=== PATIENT | female | born 1975 | race Caucasian/White ===

== ENCOUNTER 2018-08-16 20:13 | Inpatient (IN) | payer OTHER ==
[2018-08-16] MEDS: ACETAMINOPHEN 325 MG TAB PO (22:14)
[2018-08-16] MEDS: BACLOFEN 10 MG TAB PO (22:15)
[2018-08-16] MEDS: HYDROCODONE/APAP (10/325) TAB PO (22:15)
[2018-08-16] MEDS: FAMOTIDINE 20 MG TAB PO (22:15)
[2018-08-16] MEDS: SOD CHLORIDE 0.9% 1,000 ML IV (22:17)
[2018-08-16] MEDS: NORTRIPTYLINE 10 MG CAP PO (23:30)
[2018-08-16] MEDS: MEROPENEM 1 GM/50ML(PMX) 50 ML IVPB (23:35)
[2018-08-17 08:19] LABS: ADD MAN DIFF? NO
[2018-08-17 08:23] LABS: BASOPHILS % 0.3 % (0.0-2.0); EOSINOPHILS % 0.3 % (0.0-7.0); HEMOGLOBIN 11.3 g/dl (12.0-16.0); LYMPHOCYTES % 8.6 % (15.0-51.0); MEAN CORPUSCULAR HEMOGLOBIN 30.4 pg (29.0-33.0); MEAN CORPUSCULAR HGB CONC 33.2 g/dl (32.0-37.0); MEAN CORPUSCULAR VOLUME 91.4 fl (82.0-101.0); MONOCYTES % 8.8 % (0.0-11.0); NEUTROPHILS % 81.5 % (39.0-77.0); PLATELET COUNT 151 10^3/UL (140-415); RED BLOOD COUNT 3.72 10^6/ul (4.20-5.40); RED CELL DISTRIBUTION WIDTH 12.9 % (11.5-14.5)
[2018-08-17 08:23] LABS: WHITE BLOOD COUNT 7.9 10^3/ul (4.8-10.8)
[2018-08-17 08:24] LABS: LYMPHOCYTES # 0.7 10^3/ul (0.8-2.9); MONOCYTE # 0.7 10^3/ul (0.3-0.9); NEUTROPHIL # 6.5 10^3/ul (1.6-7.5)
[2018-08-17] MEDS: MEROPENEM 1 GM/50ML(PMX) 50 ML IVPB ×2 (08:28→20:51)
[2018-08-17] MEDS: FAMOTIDINE 20 MG TAB PO ×2 (08:32→20:51)
[2018-08-17] MEDS: BACLOFEN 10 MG TAB PO ×2 (08:32→20:51)
[2018-08-17] MEDS: ENOXAPARIN 40 MG/0.4 ML SYG SC (08:36)
[2018-08-17 08:50] LABS: ALANINE AMINOTRANSFERASE 37 IU/L (13-69); ALBUMIN 3.3 g/dl (3.3-4.9); ALBUMIN/GLOBULIN RATIO 1.13; ALKALINE PHOSPHATASE 69 IU/L (42-121); ANION GAP 7 (5-13); ASPARTATE AMINO TRANSFERASE 22 IU/L (15-46); BILIRUBIN,INDIRECT 0.5 mg/dl (0-1.1); BILIRUBIN,TOTAL 0.5 mg/dl (0.2-1.3); BLOOD UREA NITROGEN 5 mg/dl (7-20); CALCIUM 8.3 mg/dl (8.4-10.2); CARBON DIOXIDE 27 mmol/L (21-31); CHLORIDE 107 mmol/L (97-110); CREATININE 0.68 mg/dl (0.44-1.00); Estimated GFR > 60 mL/min (>60); GLUCOSE 92 mg/dl (70-220); POTASSIUM 4.1 mmol/L (3.5-5.1); SODIUM 141 mmol/L (135-144); TOTAL PROTEIN 6.2 g/dl (6.1-8.1)
[2018-08-17] MEDS: HYDROCODONE/APAP (10/325) TAB PO ×2 (08:54→15:20)
[2018-08-17] MEDS: SOD CHLORIDE 0.9% 1,000 ML IV ×2 (11:20→23:45)
[2018-08-17] MEDS: KETOROLAC 30 MG INJ IV ×2 (12:44→20:52)
[2018-08-17] MEDS: ONDANSETRON 4 MG INJ IV (12:44)
[2018-08-17 18:16] LABS: ADD UMIC NO; UR ASCORBIC ACID NEGATIVE (NEGATIVE); UR BILIRUBIN (Dip) NEGATIVE (NEGATIVE); UR BLOOD (Dip) NEGATIVE (NEGATIVE); UR CLARITY CLEAR (CLEAR); UR COLOR STRAW (YELLOW); UR GLUCOSE (Dip) NEGATIVE (NEGATIVE); UR KETONES (Dip) TRACE mg/dL (NEGATIVE); UR LEUKOCYTE ESTERASE (Dip) NEGATIVE Leu/ul (NEGATIVE); UR NITRITE (Dip) NEGATIVE (NEGATIVE); UR SPECIFIC GRAVITY (Dip) 1.003 (1.003-1.030); UR TOTAL PROTEIN (Dip) NEGATIVE (NEGATIVE); UR UROBILINOGEN (Dip) NEGATIVE (NEGATIVE)
[2018-08-17] MEDS: NORTRIPTYLINE 10 MG CAP PO (20:50)
[2018-08-17] MEDS: ACETAMINOPHEN 325 MG TAB PO (20:57)
[2018-08-18] MEDS: MEROPENEM 1 GM/50ML(PMX) 50 ML IVPB ×3 (05:12→21:05)
[2018-08-18] MEDS: KETOROLAC 30 MG INJ IV ×2 (05:12→16:06)
[2018-08-18] MEDS: FAMOTIDINE 20 MG TAB PO ×2 (10:23→21:01)
[2018-08-18] MEDS: BACLOFEN 10 MG TAB PO ×2 (10:23→21:01)
[2018-08-18 10:28] LABS: ADD MAN DIFF? NO
[2018-08-18 10:30] LABS: WHITE BLOOD COUNT 5.1 10^3/ul (4.8-10.8)
[2018-08-18 10:30] LABS: BASOPHILS % 0.4 % (0.0-2.0); EOSINOPHILS % 0.6 % (0.0-7.0); HEMATOCRIT 33.7 % (37.0-47.0); HEMOGLOBIN 11.3 g/dl (12.0-16.0); LYMPHOCYTES # 0.8 10^3/ul (0.8-2.9); LYMPHOCYTES % 16.2 % (15.0-51.0); MEAN CORPUSCULAR HEMOGLOBIN 30.3 pg (29.0-33.0); MEAN CORPUSCULAR HGB CONC 33.5 g/dl (32.0-37.0); MEAN CORPUSCULAR VOLUME 90.3 fl (82.0-101.0); MEAN PLATELET VOLUME 10.5 fl (7.4-10.4); MONOCYTE # 0.7 10^3/ul (0.3-0.9); MONOCYTES % 13.9 % (0.0-11.0); NEUTROPHIL # 3.5 10^3/ul (1.6-7.5); NEUTROPHILS % 68.3 % (39.0-77.0); PLATELET COUNT 203 10^3/UL (140-415); RED BLOOD COUNT 3.73 10^6/ul (4.20-5.40); RED CELL DISTRIBUTION WIDTH 12.6 % (11.5-14.5)
[2018-08-18 10:52] LABS: ANION GAP 8 (5-13); BLOOD UREA NITROGEN 5 mg/dl (7-20); CALCIUM 8.5 mg/dl (8.4-10.2); CARBON DIOXIDE 26 mmol/L (21-31); CHLORIDE 108 mmol/L (97-110); CREATININE 0.63 mg/dl (0.44-1.00); Estimated GFR > 60 mL/min (>60); GLUCOSE 98 mg/dl (70-220); POTASSIUM 4.2 mmol/L (3.5-5.1); SODIUM 142 mmol/L (135-144)
[2018-08-18] MEDS: ENOXAPARIN 40 MG/0.4 ML SYG SC (10:55)
[2018-08-18 15:25] LABS: CREATINE KINASE 33 IU/L (23-200)
[2018-08-18 15:31] LABS: CK-MB 0.33 ng/ml (0.0-2.4); TROPONIN-I < 0.012 ng/ml (0.000-0.120)
[2018-08-18] MEDS: ASPIRIN (EC) 81 MG TAB PO (16:07)
[2018-08-18] MEDS: SOD CHLORIDE 0.9% 1,000 ML IV (16:08)
[2018-08-18] MEDS: NORTRIPTYLINE 10 MG CAP PO (21:00)
[2018-08-19] MEDS: SOD CHLORIDE 0.9% 1,000 ML IV ×2 (03:11→16:40)
[2018-08-19] MEDS: MEROPENEM 1 GM/50ML(PMX) 50 ML IVPB ×3 (06:00→21:01)
[2018-08-19 06:44] LABS: CREATINE KINASE 38 IU/L (23-200)
[2018-08-19 06:58] LABS: CK INDEX 1.1; CK-MB 0.42 ng/ml (0.0-2.4); TROPONIN-I < 0.012 ng/ml (0.000-0.120)
[2018-08-19 07:03] LABS: FREE T3 3.33 pg/ml (2.77-5.27)
[2018-08-19] MEDS: FAMOTIDINE 20 MG TAB PO ×2 (08:32→21:00)
[2018-08-19] MEDS: BACLOFEN 10 MG TAB PO ×2 (08:32→21:00)
[2018-08-19] MEDS: KETOROLAC 30 MG INJ IV ×2 (08:33→18:45)
[2018-08-19] MEDS: ENOXAPARIN 40 MG/0.4 ML SYG SC (08:58)
[2018-08-19] MEDS: IOHEXOL 100 ML (12:20)
[2018-08-19] MEDS: IOHEXOL 350MG/ML 50 ML BTL (12:20)
[2018-08-19] MEDS: SOD CHLORIDE 0.9% 100 ML (12:20)
[2018-08-19] MEDS: ONDANSETRON 4 MG INJ IV ×2 (12:49→18:47)
[2018-08-19] MEDS: NITROGLYCERIN AEROSOL (4.9 GM) (13:31)
[2018-08-19] MEDS: NORTRIPTYLINE 10 MG CAP PO (21:00)
[2018-08-20] MEDS: SOD CHLORIDE 0.9% 1,000 ML IV ×2 (00:14→13:13)
[2018-08-20] MEDS: HYDROCODONE/APAP (10/325) TAB PO ×3 (04:16→21:55)
[2018-08-20] MEDS: MEROPENEM 1 GM/50ML(PMX) 50 ML IVPB (06:13)
[2018-08-20] MEDS: BACLOFEN 10 MG TAB PO ×2 (08:06→20:25)
[2018-08-20] MEDS: FAMOTIDINE 20 MG TAB PO ×2 (08:06→20:25)
[2018-08-20] MEDS: ENOXAPARIN 40 MG/0.4 ML SYG SC (08:12)
[2018-08-20] MEDS: SOD CHLORIDE 0.9% 100 ML (09:45)
[2018-08-20] MEDS: IOHEXOL 100 ML (09:45)
[2018-08-20] MEDS ORDERED: IBUPROFEN 400 MG TAB PO (11:30)
[2018-08-20] MEDS: CEPHALEXIN 500 MG CAP PO ×2 (13:13→21:55)
[2018-08-20] MEDS: NORTRIPTYLINE 10 MG CAP PO (20:26)
[2018-08-21] MEDS: SOD CHLORIDE 0.9% 1,000 ML IV ×2 (05:10→05:49)
[2018-08-21] MEDS: CEPHALEXIN 500 MG CAP PO ×3 (05:53→20:12)
[2018-08-21 08:33] LABS: ADD MAN DIFF? NO
[2018-08-21 08:41] LABS: BASOPHILS % 0.5 % (0.0-2.0); EOSINOPHILS # 0.1 10^3/ul (0.0-0.5); EOSINOPHILS % 1.4 % (0.0-7.0); HEMATOCRIT 35.9 % (37.0-47.0); LYMPHOCYTES # 1.3 10^3/ul (0.8-2.9); LYMPHOCYTES % 22.9 % (15.0-51.0); MEAN CORPUSCULAR HEMOGLOBIN 29.7 pg (29.0-33.0); MEAN CORPUSCULAR HGB CONC 33.4 g/dl (32.0-37.0); MEAN CORPUSCULAR VOLUME 88.9 fl (82.0-101.0); MEAN PLATELET VOLUME 10.4 fl (7.4-10.4); MONOCYTE # 0.5 10^3/ul (0.3-0.9); NEUTROPHIL # 3.9 10^3/ul (1.6-7.5); NEUTROPHILS % 65.9 % (39.0-77.0); PLATELET COUNT 337 10^3/UL (140-415); RED BLOOD COUNT 4.04 10^6/ul (4.20-5.40); RED CELL DISTRIBUTION WIDTH 12.5 % (11.5-14.5)
[2018-08-21 08:41] LABS: WHITE BLOOD COUNT 5.9 10^3/ul (4.8-10.8)
[2018-08-21 09:02] LABS: ANION GAP 9 (5-13); BLOOD UREA NITROGEN 6 mg/dl (7-20); CALCIUM 9.2 mg/dl (8.4-10.2); CARBON DIOXIDE 27 mmol/L (21-31); CHLORIDE 107 mmol/L (97-110); CREATININE 0.72 mg/dl (0.44-1.00); Estimated GFR > 60 mL/min (>60); GLUCOSE 101 mg/dl (70-220); POTASSIUM 4.4 mmol/L (3.5-5.1); SODIUM 143 mmol/L (135-144)
[2018-08-21] MEDS: SOD CHLORIDE 0.9% 100 ML (09:57)
[2018-08-21] MEDS: IOHEXOL 100 ML (09:57)
[2018-08-21] MEDS: BACLOFEN 10 MG TAB PO ×2 (10:13→20:12)
[2018-08-21] MEDS: FAMOTIDINE 20 MG TAB PO ×2 (10:14→20:12)
[2018-08-21] MEDS: ENOXAPARIN 40 MG/0.4 ML SYG SC (10:29)
[2018-08-21] MEDS: HYDROCODONE/APAP (10/325) TAB PO (13:30)
[2018-08-21] MEDS ORDERED: METOCLOPRAMIDE 10 MG INJ IV (15:00)
[2018-08-21] MEDS: NORTRIPTYLINE 10 MG CAP PO (21:00)
[2018-08-22] MEDS: CEPHALEXIN 500 MG CAP PO (05:26)
[2018-08-22] MEDS ORDERED: PANTOPRAZOLE SODIUM 20 MG TABEC PO (06:00)
[2018-08-22] MEDS: FAMOTIDINE 20 MG TAB PO (08:47)
[2018-08-22] MEDS: BACLOFEN 10 MG TAB PO (08:47)
[2018-08-22] MEDS: ENOXAPARIN 40 MG/0.4 ML SYG SC (09:20)
[2018-08-22] MEDS: KETOROLAC 30 MG INJ IV (12:59)
== END 2018-08-22 14:38 | disposition home or self-care (01) | DRG 690 ==
LOC: TEL 20:13
DX: N10 Acute pyelonephritis (principal); D64.9 Anemia, unspecified; R00.1 Bradycardia, unspecified; G43.909 Migraine, unspecified, not intractable, without status migrainosus
CPT/HCPCS: 70450; 70496; 75574; 80048; 80053; 81003; 82550; 82553; 84443; 84481; 84484; 85025; 87040; 87081; 87086; 93005; 93306

== ENCOUNTER → 2018-08-29 | Emergency (ER) | payer OTHER ==
[2018-08-29 15:47] LABS: ADD MAN DIFF? NO
[2018-08-29 15:50] LABS: BASOPHILS % 0.6 % (0.0-2.0); EOSINOPHILS % 0.4 % (0.0-7.0); HEMATOCRIT 46.1 % (37.0-47.0); HEMOGLOBIN 15.4 g/dl (12.0-16.0); LYMPHOCYTES # 1.3 10^3/ul (0.8-2.9); LYMPHOCYTES % 18.6 % (15.0-51.0); MEAN CORPUSCULAR HEMOGLOBIN 29.8 pg (29.0-33.0); MEAN CORPUSCULAR HGB CONC 33.4 g/dl (32.0-37.0); MEAN CORPUSCULAR VOLUME 89.2 fl (82.0-101.0); MONOCYTE # 0.6 10^3/ul (0.3-0.9); MONOCYTES % 8.6 % (0.0-11.0); NEUTROPHIL # 4.8 10^3/ul (1.6-7.5); NEUTROPHILS % 71.4 % (39.0-77.0); PLATELET COUNT 388 10^3/UL (140-415); RED BLOOD COUNT 5.17 10^6/ul (4.20-5.40); RED CELL DISTRIBUTION WIDTH 12.2 % (11.5-14.5)
[2018-08-29 15:50] LABS: WHITE BLOOD COUNT 6.8 10^3/ul (4.8-10.8)
[2018-08-29 16:00] LABS: ADD UMIC YES; UR ASCORBIC ACID NEGATIVE (NEGATIVE); UR BACTERIA FEW /HPF (NONE SEEN); UR BILIRUBIN (Dip) NEGATIVE (NEGATIVE); UR BLOOD (Dip) NEGATIVE (NEGATIVE); UR CLARITY CLEAR (CLEAR); UR COLOR STRAW (YELLOW); UR GLUCOSE (Dip) NEGATIVE (NEGATIVE); UR KETONES (Dip) NEGATIVE (NEGATIVE); UR LEUKOCYTE ESTERASE (Dip) 2+ Leu/ul (NEGATIVE); UR NITRITE (Dip) NEGATIVE (NEGATIVE); UR RBC 0 /HPF (0-5); UR SPECIFIC GRAVITY (Dip) 1.006 (1.003-1.030); UR SQUAMOUS EPITHELIAL CELL FEW /HPF (FEW); UR TOTAL PROTEIN (Dip) NEGATIVE (NEGATIVE); UR UROBILINOGEN (Dip) NEGATIVE (NEGATIVE); UR WBC 5 /HPF (0-5)
[2018-08-29 16:13] LABS: ALANINE AMINOTRANSFERASE 33 IU/L (13-69); ALBUMIN 4.9 g/dl (3.3-4.9); ALBUMIN/GLOBULIN RATIO 1.53; ALKALINE PHOSPHATASE 63 IU/L (42-121); ANION GAP 13 (5-13); ASPARTATE AMINO TRANSFERASE 27 IU/L (15-46); BILIRUBIN,INDIRECT 0.9 mg/dl (0-1.1); BILIRUBIN,TOTAL 0.9 mg/dl (0.2-1.3); BLOOD UREA NITROGEN 15 mg/dl (7-20); CALCIUM 9.9 mg/dl (8.4-10.2); CARBON DIOXIDE 29 mmol/L (21-31); CHLORIDE 100 mmol/L (97-110); CREATININE 0.78 mg/dl (0.44-1.00); Estimated GFR > 60 mL/min (>60); GLUCOSE 107 mg/dl (70-220); POTASSIUM 3.9 mmol/L (3.5-5.1); SODIUM 142 mmol/L (135-144); TOTAL PROTEIN 8.1 g/dl (6.1-8.1)
== END | disposition home or self-care (01) ==
LOC: FTE 14:11
DX: N30.00 Acute cystitis without hematuria (principal)
CPT/HCPCS: 36415; 76775; 80053; 81001; 81025; 85025; 99283

== ENCOUNTER 2018-09-12 17:05 | Emergency (ER) | payer OTHER ==
[2018-09-12] MEDS: ONDANSETRON 4 MG INJ IV (19:15)
[2018-09-12] MEDS: morphine 4 MG/ML VIAL IV (19:15)
[2018-09-12 19:17] LABS: ADD MAN DIFF? NO
[2018-09-12 19:19] LABS: WHITE BLOOD COUNT 5.9 10^3/ul (4.8-10.8)
[2018-09-12 19:19] LABS: BASOPHILS % 0.5 % (0.0-2.0); EOSINOPHILS # 0.2 10^3/ul (0.0-0.5); EOSINOPHILS % 2.5 % (0.0-7.0); HEMATOCRIT 39.1 % (37.0-47.0); HEMOGLOBIN 13.4 g/dl (12.0-16.0); LYMPHOCYTES # 1.5 10^3/ul (0.8-2.9); LYMPHOCYTES % 25.6 % (15.0-51.0); MEAN CORPUSCULAR HGB CONC 34.3 g/dl (32.0-37.0); MEAN CORPUSCULAR VOLUME 87.5 fl (82.0-101.0); MEAN PLATELET VOLUME 10.6 fl (7.4-10.4); MONOCYTE # 0.4 10^3/ul (0.3-0.9); MONOCYTES % 6.6 % (0.0-11.0); NEUTROPHIL # 3.8 10^3/ul (1.6-7.5); NEUTROPHILS % 64.5 % (39.0-77.0); PLATELET COUNT 180 10^3/UL (140-415); RED BLOOD COUNT 4.47 10^6/ul (4.20-5.40); RED CELL DISTRIBUTION WIDTH 12.3 % (11.5-14.5)
[2018-09-12] MEDS: SOD CHLORIDE 0.9% 1,000 ML IV (19:19)
[2018-09-12 19:38] LABS: ANION GAP 11 (5-13); BLOOD UREA NITROGEN 8 mg/dl (7-20); CALCIUM 9.3 mg/dl (8.4-10.2); CARBON DIOXIDE 27 mmol/L (21-31); CHLORIDE 104 mmol/L (97-110); CREATININE 0.77 mg/dl (0.44-1.00); Estimated GFR > 60 mL/min (>60); GLUCOSE 106 mg/dl (70-220); INR 0.87; POTASSIUM 3.9 mmol/L (3.5-5.1); PROTIME 11.9 Sec (11.9-14.9); PT RATIO 0.9; SODIUM 142 mmol/L (135-144)
[2018-09-12 19:39] LABS: PARTIAL THROMBOPLASTIN TIME 26.3 Sec (23.0-35.0)
[2018-09-12 19:49] LABS: TROPONIN-I < 0.012 ng/ml (0.000-0.120)
[2018-09-12 19:59] LABS: ADD UMIC YES; UR ASCORBIC ACID NEGATIVE (NEGATIVE); UR BILIRUBIN (Dip) NEGATIVE (NEGATIVE); UR BLOOD (Dip) NEGATIVE (NEGATIVE); UR CLARITY CLEAR (CLEAR); UR COLOR STRAW (YELLOW); UR GLUCOSE (Dip) NEGATIVE (NEGATIVE); UR KETONES (Dip) NEGATIVE (NEGATIVE); UR LEUKOCYTE ESTERASE (Dip) TRACE Leu/ul (NEGATIVE); UR NITRITE (Dip) NEGATIVE (NEGATIVE); UR RBC 0 /HPF (0-5); UR SPECIFIC GRAVITY (Dip) 1.004 (1.003-1.030); UR TOTAL PROTEIN (Dip) NEGATIVE (NEGATIVE); UR UROBILINOGEN (Dip) NEGATIVE (NEGATIVE); UR WBC 1 /HPF (0-5)
== END 2018-09-12 21:49 | disposition home or self-care (01) ==
LOC: FTE 17:05
DX: R51 Headache (principal); R07.9 Chest pain, unspecified; R10.13 Epigastric pain; R11.0 Nausea; R50.9 Fever, unspecified
CPT/HCPCS: 36415; 71045; 80048; 81001; 84484; 84703; 85025; 85610; 85730; 96374; 96375; 99285-25

== ENCOUNTER 2018-11-07 15:25 | Emergency (ER) | payer SELFPAY, OTHER | END 2018-11-07 21:20 | disposition left against medical advice (07) | LOC: E/R 15:25 | DX: Z53.21 Procedure and treatment not carried out due to patient leaving prior to being seen by health care provider (principal) | CPT/HCPCS: 93005 ==